=== PATIENT | male | born 1985 | race Caucasian/White ===

== ENCOUNTER 2023-08-06 22:39 | Emergency (ER) | payer MEDICAID, SELFPAY ==
[2023-08-06 22:45] VITALS: BP 146/97; PULSE 91; RESP 18; TEMP 36.6; O2SAT 95
--- NOTE | 2023-08-06 23:09 | ED_ITS ---
HPI - Extremity Injury (Lower) General Chief Complaint: Extremity Pain/Injury, Lower Stated Complaint: Left side leg infected Time Seen by Provider: 08/06/23 22:59 History of Present Illness HPI Narrative: This 37-year-old male comes in with wound on his left lower leg that has been present for the past couple weeks and he is concerned now that there is an infection or cellulitis that has occurred. He states that he has had cellulitis in the past. About 10 days ago he presented to an urgent care in [place] and was instructed to keep an eye on it. He comes in today because he feels that the redness around 2 little wounds on the anterior surface of his left lower leg is spreading outward. This patient is morbidly obese and weighs approximately 560 lb. He has very large legs with some pressure on the skin that may prolong wound healing. He does not report any fevers. He states that he has been dressing these wounds daily and applying topical antibiotic ointment. Related Data Allergies Allergy/AdvReac Type Severity Reaction Status Date / Time No Known Drug Allergies Allergy Verified 08/06/23 22:45 Review of Systems Status of ROS: Reports: 10 or more systems reviewed and unremarkable except as noted in History and below Narrative: Constitutional: No fevers, no weight gain or loss. Eyes: No discharge. No vision changes. HENT: No congestion, no sore throat, no ear pain. Cardiovascular: No chest pain, no palpitations. Respiratory: No shortness of breath, no wheezes, no cough. Gastrointestinal: No abdominal pain, no vomiting, no diarrhea. Genitourinary: No dysuria, no hematuria. Musculoskeletal: Normal range of motion. Skin: No rashes, no pruritis. Two superficial wounds on the anterior aspect of his left lower leg with surrounding erythema. Neurological: No dizziness, weakness, sensory change, speech change. Endo/Heme/Allergies: No bruising or bleeding. No polydipsia. Pysch: no suicidality, no anxiety, no insomnia. All other systems reviewed and are negative. Exam Narrative: Exam Narrative: Constitutional: Well-developed, well-nourished, no acute distress. Morbidly obese. HEENT: Normocephalic, atraumatic. Neck: Normal range of motion. Nontender. Supple. Heart: Intact distal pulses. Lungs: No chest discomfort. No wheezes, rhonchi, or rales. Abdomen: Nontender. Back: Normal range of motion. Extremities: Normal range of motion. Skin: 2 superficial wounds on the left lower anterior surface of his leg with surrounding erythema extending about 6-8 cm in diameter. There is no purulent discharge. Neurologic: No altered sensation. No weakness. Alert and oriented. Psychiatric: No suicidality. No anxiety or depression. No insomnia. Nursing notes and vitals signs are reviewed. Const: Vital Signs, click to edit/add: Vital Signs - 24 hr 08/06/23 22:45 Temperature 97.8 F Pulse Rate [Left P ulse Oximeter] 91 Respiratory Rate 18 Blood Pressure [Ri ght Upper Arm] 146/97 H Pulse Oximetry 95 Oxygen Delivery Me thod Room Air Course Vital Signs Vital signs: Initial Vital Signs Temperature 97.8 F 08/06/23 22:45 Temperature Source Temporal Artery Scan 08/06/23 22:45 Pulse Rate 91 08/06/23 22:45 Pulse Rhythm Regular 08/06/23 22:45 Respiratory Rate 18 08/06/23 22:45 Blood Pressure 146/97 H 08/06/23 22:45 Blood Pressure Mean 113 H 08/06/23 22:45 Blood Pressure Position Sitting 08/06/23 22:45 Pulse Oximetry 95 08/06/23 22:45 Oxygen Delivery Method Room Air 08/06/23 22:45 Vital Signs Temperature 97.8 F 08/06/23 22:45 Pulse Rate 91 08/06/23 22:45 Respiratory Rate 18 08/06/23 22:45 Blood Pressure 146/97 H 08/06/23 22:45 Pulse Oximetry 95 08/06/23 22:45 Oxygen Delivery Method Room Air 08/06/23 22:45 Temperature 97.8 F 08/06/23 22:45 Pulse Rate 91 08/06/23 22:45 Respiratory Rate 18 08/06/23 22:45 Blood Pressure 146/97 H 08/06/23 22:45 Pulse Oximetry 95 08/06/23 22:45 Oxygen Delivery Method Room Air 08/06/23 22:45 MDM - Extremity Injury (Lower) MDM Narrative Medical decision making narrative: This patient comes in with concern that he may be developing cellulitis in his left lower extremity. The patient has very large legs and is morbidly obese with stated weight of 560 lb. He is at risk for cellulitis given these conditions. There is no purulent drainage from these superficial wounds. Patient states that there was clear or serous type drainage that occurred several days ago. He does not report any purulent drainage. There is some possibility that this could be a cellulitis in early stages. The patient did receive a prescription for 5 days of Keflex. Discharge Plan Discharge Clinical Impression: Cellulitis Patient Disposition: Home, Self-Care Condition: Unchanged Additional Instructions: Take medication as prescribed. Keep wounds covered and elevate legs when reclining. Follow up with MD return if worsening. Stand Alone Forms: [employer] Info Instructions
== END 2023-08-06 23:36 | disposition home or self-care (01) ==
LOC: ED 23:29
PROVIDERS: Emergency Provider Emergency Medicine Emergency Medical Services
DX: L03.116 Cellulitis of left lower limb (principal)
CPT/HCPCS: 99283; 99284